=== PATIENT | male | born 1965 | race Caucasian/White ===

== ENCOUNTER → 2016-07-16 | Outpatient (CLI) | payer OTHER ==
--- NOTE | 2016-07-16 21:54 | CONS ---
PRIMARY CARE PHYSICIAN: Dr. Rodriguez. 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 A 30-year-old male patient coming in for further advice regarding increased fatigue and sleepiness during the day. 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 He tells me around 3 to 4 days a week, he works morning shifts between 6:00 a.m. and 6:00 p.m. and following that, he goes for a few days off and subsequently goes into night shifts between 6:00 p.m. and 6:00 a.m. On the days that he works mornings, he gets home at around 7:00 p.m. and he sleeps between 8:00 p.m. and 5:00 a.m. These are good days where he describes his sleep quality to be good and he averages around 7 hours of sleep and he wakes up alert and refreshed during the day without any major complaints. 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 and he typically wakes up at 11:00 a.m. and he is unable to go back to sleep. As such, he feels tired and sleepy during the day. He is not sure what makes him wake up early. He describes his bedroom environment to be very calm and comfortable. He has a nice a new mattress. No distraction such as TV or telephone or any other electronics in the bedroom environment. No noise. No light stimulation and the patient sometimes wears his sunglasses on his way back, home to prevent himself from light stimulation. No snoring. No apneas. No waking up from sleep for any problems such as nocturia, choking or gasping. No restlessness in the lower extremities. No sleepwalking or sleep-talking. No anxiety. No heartburn. No panic attacks. No shortness of breath. No problems with pain. No anxiety. No depression. No other psychiatric disorders. He had seen Dr. Rodriguez for this problem and the patient was given Ambien which failed to extend sleep hours. It made him more fatigued and sleepy. Otherwise, he has not tried any other hypnotics. He is wondering whether a stimulating medication will be needed or during work hours. He tells me that he is able to function despite being fired tired and sleepy and he does not fall asleep during his manager shift, has not been involved in any judgmental errors at work. No sleep attacks. PAST MEDICAL HISTORY: Negative. PAST SURGICAL HISTORY: Negative. DRUG ALLERGIES: Not known. Medications are none. SOCIAL HISTORY: Nonsmoker. No history of substance abuse. No history of alcoholism. FAMILY HISTORY: Negative for sleep disorder. REVIEW OF SYSTEMS: Twelve-point review of systems was done and the positive findings were mentioned above of history of present illness. No sleep paralysis. No hallucinations. No cataplexy. No anxiety. No panic. No palpitations. No grinding of the teeth. No nausea, vomiting. No abdominal pain. No chest pain. No shortness of breath. BP is 143/85, pulse 65, respirations 16, temperature 98.3, saturation 98% on room air. Weight is 204. Height is 6 feet 1 inch. BMI is 26.9. Neck size is 15-1/2 inches. GENERAL APPEARANCE: Calm, comfortable, in no acute distress. HEENT: Negative for JVD. There is no goiter or neck mass. LUNGS: Clear to auscultation. HEART: Sounds are regular rate and rhythm. Normal S1, S2. No S3. No S4. No murmurs. ABDOMEN: Soft, nontender. No organomegaly. EXTREMITIES: No edema. No cyanosis or clubbing. 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 Doubt any primary sleep breathing disorder. Doubt any sleep apnea or any other sleep breathing disorder affecting this patient's morning sleep quality; in fact, the patient sleeps much better at nighttime and he wakes up refreshed. However, his main problem is when he works night shifts and he is unable to extend his morning sleep hours more than 4 hours. As such, there is a component of insufficient sleep syndrome while he is having night shifts and this is translating into excessive tiredness and fatigue during the day. PLAN: Ideally I would like to see this patient sleeping a good 7 hours of sleep in the morning, especially following manager shift. He needs to eliminate all form of caffeinated beverages stimulus that he may drink in the morning. Wearing his sunglasses on the way home may lower the level of brain stimulation from light. He needs to have a very light breakfast and following that, go to sleep in a very calm and quiet environment. Addition of a sleeping pill may help promote and extend his sleep hours. He has tried Ambien in the past with low success. An alternative will Belsomra, which will be started at 10 mg p.o. on the days when he does night shifts. We will try this and hypnotics to extend his sleep hours, especially as there is no other identifiable secondary causes that may affect his sleep quality. I do not see the need for sleep study at this stage. We will try Belsomra. Will authorize the medication. Will see me back in followup at the [facility] office for further advice. Stimulating medication at nighttime during working hours may be a final option if we fail to extend the patient's morning sleeping hours. Will continue to follow.
== END | disposition home or self-care (01) ==
LOC: SLEEP 14:23
PROVIDERS: ATTEND Internal Medicine Critical Care Medicine
DX: F51.12 Insufficient sleep syndrome (principal)
CPT/HCPCS: 99211

== ENCOUNTER → 2024-02-13 | Outpatient (CLI) | payer BC ==
--- NOTE | 2024-02-13 17:03 | CT ---
EXAMINATION TYPE: CT abdomen pelvis wo con DATE OF EXAM: 02/13/2024 4:47 PM COMPARISON: None CLINICAL INDICATION: Male, 58 years old with history of R10.9 UNSPECIFIED ABDOMINAL PAIN; Abdominal p ain and flank pain. Pt thinks he had the stomach flu last week. TECHNIQUE: Axial CT abdomen pelvis wo con;Sagittal and coronal reformats were created on a separate workstation. Contrast used: mL of , (none if empty) Oral contrast used: with Oral Contrast (none if empty) CT DLP: 755.6 mGycm, Automated exposure control for dose reduction was used. FINDINGS: LOWER CHEST: Unremarkable ABDOMEN LIVER: Diffusely hypoattenuating parenchyma. GALLBLADDER AND BILE DUCTS: Unremarkable. PANCREAS: Unremarkable. SPLEEN: Unremarkable. ADRENAL GLANDS: Unremarkable. KIDNEYS AND URETERS: No evidence of hydronephrosis or renal calculus. The ureters are unremarkable. Cortex of the left kidney measuring 7 mm. Extrarenal pelves bilaterally. PELVIS BLADDER: No evidence for wall thickening or mass given limitations of exam. REPRODUCTIVE: Prostate is enlarged in size measuring 4.7 cm in transverse dimension. ABDOMEN & PELVIS STOMACH AND BOWEL: . Scattered diverticula are noted throughout the colon. No evidence of bowel obstr uction. The appendix is normal. PERITONEUM/RETROPERITONEUM: No evidence of pneumoperitoneum or free fluid. VASCULATURE: No evidence of aortic aneurysm. MUSCULOSKELETAL: No acute osseous abnormalities. Mild disc degeneration changes are present throughou t the thoracolumbar spine. LYMPH NODES: No gross evidence for lymphadenopathy. SOFT TISSUE/ABDOMINAL WALL: Small fat-containing umbilical hernia. IMPRESSION: 1. No evidence for acute process. No obstructive uropathy. The appendix is normal. 2. 4. Left hyperdense renal lesion further evaluation with renal mass protocol MRI recommended. 3. Prostatomegaly, correlate with serum PSA. 4. Left hyperdense renal lesion further evaluation with renal mass protocol MRI recommended. 5. Hepatic steatosis. 6. Colonic diverticulosis. [facility], , 02/13/2024 5:01 PM
== END | disposition home or self-care (01) ==
LOC: RADCTMAIN 14:39
PROVIDERS: ATTEND Family Medicine
DX: N40.0 Benign prostatic hyperplasia without lower urinary tract symptoms (principal); K76.0 Fatty (change of) liver, not elsewhere classified; K57.30 Diverticulosis of large intestine without perforation or abscess without bleeding; N28.9 Disorder of kidney and ureter, unspecified
CPT/HCPCS: 74176

== ENCOUNTER → 2024-03-23 | Outpatient (CLI) | payer BC ==
--- NOTE | 2024-03-23 09:33 | MR ---
EXAMINATION TYPE: MR kidney wo/w con DATE OF EXAM: 03/23/2024 9:13 AM COMPARISON: CT scan abdomen from 02/13/2024 . CLINICAL INDICATION: Male, 58 years old with history of N28.9 Disorder of kidney and ureter, unspecif ied; PHH, Abnormal CT TECHNIQUE: Multiplanar multi-sequence imaging was performed without contrast. Post contrast imaging was performed. Post IV contrast subtraction images were also submitted for review. IV Contrast: 9 mL Gadobutrol FINDINGS: LOWER CHEST: No gross irregularity. ABDOMEN Liver: No evidence for cirrhosis. Signal dropout on chemical shift out of phase imaging. Gallbladder and Bile ducts: No evidence for ductal dilation, or biliary stricture or evidence of chol edocholithiasis. The gallbladder is within normal limits. Pancreas: No ductal dilation. No evidence for solid mass. Spleen: Normal for size. Adrenal glands: Unremarkable. Kidneys: Left renal lesion has intrinsic high T1 signal. No abnormal postcontrast enhancement postcontrast kirk ging. Additional subcentimeter left renal cortical cyst. No suspicious right renal masses or cysts id entified. No evidence for obstructive uropathy. No suspicious renal masses. Stomach and Bowel: No evidence for bowel wall thickening or evidence for obstruction. Scattered colon ic diverticula. Retroperitoneum/Peritoneum: No evidence of pneumoperitoneum or free fluid. Vasculature: No aortic aneurysm. Musculoskeletal: The osseous structures appear intact. Lymph Nodes: No gross evidence for lymphadenopathy. Abdominal wall: Unremarkable. IMPRESSION: 1. Left renal Bosniak type II renal cyst. Additional subcentimeter left renal cortical cyst present. No suspicious renal masses. 2. Hepatic steatosis. 3. Colonic diverticulosis. [facility], , 03/23/2024 9:30 AM
== END | disposition home or self-care (01) ==
LOC: RADMRIMAIN 08:12
PROVIDERS: ATTEND Family Medicine
DX: N28.9 Disorder of kidney and ureter, unspecified (principal); N28.1 Cyst of kidney, acquired; K76.0 Fatty (change of) liver, not elsewhere classified; K57.30 Diverticulosis of large intestine without perforation or abscess without bleeding
CPT/HCPCS: 74183; A9585